=== PATIENT | male | born 1980 | race Two or more races ===

== ENCOUNTER 2019-02-23 04:29 | Emergency (ER) | payer SELFPAY ==
[2019-02-23 04:52] VITALS: TEMP 98.7; O2SAT 100
[2019-02-23 06:49] VITALS: BP 129/86; PULSE 78; RESP 16
--- NOTE | 2019-02-23 06:50 | ED PDOC ---
HPI: Psych/Substance Abuse Time Seen by Provider: 02/23/19 05:05 Chief Complaint (Nursing): Alcohol Ingestion Chief Complaint (Provider): Alcohol Ingestion History Per: Patient History/Exam Limitations: no limitations Onset/Duration Of Symptoms: Hrs Modifying Factor(s): Alcohol Additional Complaint(s): 38 year old male presents to the ED for alcohol intoxication. Patient admits he had 3 beers last night and he could not get Uber. Patient states he slept on someones porch and fell sustaining an injury on the forehead. Patient has abrasion to the forehead. Otherwise, he denies any other medical complains. PMD: Dr. Cha Past Medical History Reviewed: Historical Data, Nursing Documentation, Vital Signs Vital Signs: Last Vital Signs Temp 98.7 F 02/23/19 04:50 Pulse 100 H 02/23/19 04:50 Resp 18 02/23/19 04:50 BP 130/89 02/23/19 04:50 Pulse Ox 100 02/23/19 04:50 Primary Care Provider: Ingrid Cha - Medical History PMH: No Chronic Diseases - Family History Family History: States: Unknown Family Hx - Allergies Allergies/Adverse Reactions: Allergies Allergy/AdvReac Type Severity Reaction Status Date / Time No Known Allergies Allergy Verified 02/23/19 04:49 Review of Systems ROS Statement: Except As Marked, All Systems Reviewed And Found Negative Constitutional: Negative for: Fever Cardiovascular: Negative for: Chest Pain Respiratory: Negative for: Cough, Shortness of Breath Gastrointestinal: Negative for: Vomiting Skin: Positive for: Other (head abrasion ) Neurological: Negative for: Weakness, Numbness Psych: Negative for: Suicidal ideation Physical Exam - Reviewed Nursing Documentation Reviewed: Yes Vital Signs Reviewed: Yes - Physical Exam Appears: Positive for: Non-toxic, No Acute Distress Head Exam: Positive for: ATRAUMATIC, NORMOCEPHALIC. Negative for: NORMAL INSPECTION (abrasion of forehead and chin ) Skin: Positive for: Normal Color, Warm, Dry. Negative for: Rash Eye Exam: Positive for: EOMI, Normal appearance, PERRL ENT: Positive for: Normal ENT Inspection Neck: Positive for: Normal, Painless ROM Cardiovascular/Chest: Positive for: Regular Rate, Rhythm. Negative for: Murmur Respiratory: Positive for: Normal Breath Sounds. Negative for: Decreased Breath Sounds, Respiratory Distress Gastrointestinal/Abdominal: Positive for: Normal Exam, Soft. Negative for: Tenderness Back: Positive for: Normal Inspection Extremity: Positive for: Normal ROM. Negative for: Tenderness, Pedal Edema, Deformity Neurological/Psych: Positive for: Awake, Alert, Normal Tone, Oriented (x3). Negative for: Motor/Sensory Deficits - ECG O2 Sat by Pulse Oximetry: 100 (RA) Pulse Ox Interpretation: Normal Medical Decision Making Medical Decision Making: Time: 531 Impression: 38yo male with head injury in setting of alcohol use Plan: Head w/o contrast CT Reevaluation CT SCAN OF THE BRAIN WITHOUT IV CONTRAST CLINICAL INDICATION: Trauma. TECHNIQUE: Axial and reformatted sagittal and coronal images of the brain obtained without IV contrast administration. Normal size of the ventricles and extra-axial spaces for the patient's age. Normal white matter tracts of the supratentorial brain. Normal basal ganglia and thalami. Normal brainstem. Normal cerebellum. There is no demonstrated extra-axial, intraparenchymal, or intraventricular hemorrhage. There are no findings of an acute ischemic infarction. Normal calvarium. There is no demonstrated fracture. Normal soft tissue structures. Normal visualized paranasal sinuses. IMPRESSION: Normal unenhanced CT scan of the brain. Electronically signed on February 23, 2019 6:23:56 AM EDT by: Rosa Hernandez M.D., Certified by TEJA, MSK, Neuroradiology [id number] Upon provider reevaluation patient is feeling better, is medically stable, and requires no further treatment in the ED at this time. Patient will be discharged Scribe Attestation: Documented by Fredrick Alicia, acting as a scribe for Mu Gibbs MD Provider Scribe Attestation: All medical record entries made by the Scribe were at my direction and personally dictated by me. I have reviewed the chart and agree that the record accurately reflects my personal performance of the history, physical exam, medical decision making, and the department course for this patient. I have also personally directed, reviewed, and agree with the discharge instructions and disposition. Disposition - Clinical Impression Clinical Impression: Alcohol use, Head injury - Disposition Disposition: Routine/Home Disposition Time: 06:32 Condition: STABLE Instructions: Closed Head Injury Forms: [facility] ([place])
--- NOTE | 2019-02-23 11:28 | CT ---
Date of service: 02/23/2019 PROCEDURE: CT HEAD WITHOUT CONTRAST. HISTORY: head injury COMPARISON: None available. TECHNIQUE: Axial computed tomography images were obtained through the head/brain without intravenous contrast. Radiation dose: Total exam DLP = 899.78 mGy-cm. This CT exam was performed using one or more of the following dose reduction techniques: Automated exposure control, adjustment of the mA and/or kV according to patient size, and/or use of iterative reconstruction technique. FINDINGS: HEMORRHAGE: No intracranial hemorrhage. BRAIN: Mild atrophy. VENTRICLES: Unremarkable. No hydrocephalus. CALVARIUM: No acute calvarial fractures. There appears to be mild right periorbital and supraorbital soft tissue swelling which extends medially over the bridge of the nose and glabella region. PARANASAL SINUSES: Unremarkable as visualized. No significant inflammatory changes. MASTOID AIR CELLS: Unremarkable as visualized. No inflammatory changes. OTHER FINDINGS: None. IMPRESSION: No acute intracranial hemorrhage. Mild atrophy. Mild right periorbital soft tissue swelling
== END 2019-02-23 06:47 | disposition home or self-care (01) ==
LOC: H.ER 04:29
DX: F10.129 Alcohol abuse with intoxication, unspecified (principal); S00.81XA Abrasion of other part of head, initial encounter; W19.XXXA Unspecified fall, initial encounter; Y92.89 Other specified places as the place of occurrence of the external cause